=== PATIENT | female | born 1975 | race Caucasian/White ===

== ENCOUNTER 2016-12-16 09:53 | Emergency (ER) | payer SELFPAY ==
[~2016-12-16] VITALS: Ht 167.6 cm; Wt 113.0 kg
[~2016-12-16 09:53] MED LIST: ACET325; PRIM0.224
[2016-12-16 09:58] VITALS: BP_SYST 145; BP_SYST 150; BP_DIAS 110; BP_DIAS 94; PULSE 105; RESP 20; TEMP 98.6; O2SAT 95
[2016-12-16] MEDS ORDERED: ATEN50TA PO (10:14)
[2016-12-16] MEDS ORDERED: ONDANSETRON ODT 4 MG TAB PO ONE (10:15)
[2016-12-16] MEDS ORDERED: ACETAMINOPHEN/CODEINE 300 MG/30 MG TAB PO ONE (10:15)
[2016-12-16] MEDS ORDERED: IBUPROFEN 600 MG TAB PO ONE (10:15)
--- NOTE | 2016-12-16 10:17 | PD ---
HPI Chief Complaint: Injury Time Seen by Provider: 10:08 Travel History International Travel<30 days: No Contact w/Intl Traveler<30days: No Traveled to known affect area: No History of Present Illness HPI 41-year-old female presents for evaluation after mechanical fall. Last night the patient tripped in the middle of the night and fell, landing on the carpet. She injured her left leg in the process. She is having pain in her left knee , left ankle and foot. Pain is an aching pain that is worse with movement, ambulation. She denies any other injuries and she has no other complaints at this time. PFSH Past Medical History Hx Anticoagulant Therapy: No Asthma: Yes Cardiovascular Problems: Yes Chemotherapy: No Cerebrovascular Accident: No Diabetes: No Diminished Hearing: No Respiratory: No Seizures: Yes ?: Not LMP: 12/12/16 : 6 Para: 3 Miscarriage: 2 : 1 Tubal Ligation: Yes Past Surgical History Hysterectomy: No Social History Alcohol Use: Yes (DRINKS WINE 5 X WEEK) Tobacco Use: No (1 1/2 PACKS DAILY) Allergies-Medications (Allergen,Severity, Reaction): Coded Allergies: No Known Allergies (Verified Allergy, Mild, 03/10/06) Reported Meds & Prescriptions Reported Meds & Active Scripts Active Lortab (Hydrocodone-Acetaminophen) 5-325 Mg Tab 1 Tab PO Q6H PRN Reported Atenolol 50 Mg Tab 50 Mg PO DAILY Review of Systems Musculoskeletal: Positive: Limited ROM, Pain, Other (difficulty walking) Skin: Positive Other (denies open wounds) Physical Exam Narrative GENERAL: Well-developed well-nourished female in no acute distress SKIN: Warm and dry. No bruising or soft tissue swelling currently. HEAD: Atraumatic. Normocephalic. CARDIOVASCULAR: Regular rate and rhythm. No murmur appreciated. RESPIRATORY: No accessory muscle use. Clear to auscultation. Breath sounds equal bilaterally. MUSCULOSKELETAL: No obvious deformities. Some tenderness to palpation to the medial left knee, lateral left ankle, dorsal left foot. There is pain with dorsi and plantar flexion of the left ankle, pain with flexion and extension of the left knee. There is no joint effusion. 2+ dorsalis pedis and posterior tibial pulses. Achilles tendon is intact and nontender. Calf is nontender. NEUROLOGICAL: Awake and alert. No obvious cranial nerve deficits. Motor grossly within normal limits. Normal speech. Data Data Last Documented VS Vital Signs Date Time Temp Pulse Resp B/P Pulse Ox O2 Delivery O2 Flow Rate FiO2 12/16/16 09:58 98.6 105 20 145/94 95 Room Air Orders Ankle, Complete ([id number]) (12/16/16 ) Foot, Complete ([id number]) (12/16/16 ) Knee, Complete (4vws) (12/16/16 ) Ice/Cold Pack (12/16/16 10:14) Acetamin-Codeine 300-30 Mg (Tylenol-Code (12/16/16 10:15) Ibuprofen (Motrin) (12/16/16 10:15) Ondansetron Odt (Zofran Odt) (12/16/16 10:15) Splint Or Brace Apply/Monitor (12/16/16 11:32) Crutches (12/16/16 11:32) MDM Medical Decision Making Medical Screen Exam Complete: Yes Emergency Medical Condition: Yes Medical Record Reviewed: Yes Differential Diagnosis Knee sprain, ankle sprain, ligamentous disruption, meniscal disruption, tibial plateau fracture, fibula fracture, avulsion fracture Narrative Course 41-year-old female who tripped and fell last night presents with left knee, left ankle and left foot pain. X-ray imaging is been ordered. The patient will be given pain medication, ice pack. X-ray imaging reveals an oblique distal left fibular fracture. The patient will be placed in a andujar splint and given crutches. A mandatory outpatient referral has been placed for orthopedic follow-up. She is stable for discharge. Diagnosis Primary Impression: Closed left ankle fracture Qualified Code: S82.892A - Closed left ankle fracture, initial encounter Referrals: Orthopedist Additional Instructions: Follow-up with an orthopedist in the next week. Do not remove the splint. Crutches. Lortab as needed. Do not drive or drink alcohol when taking this medication. Return for any emergent medical conditions. Med/Other Pt SpecificInfo: Prescription(s) given, Orthopedic Instructions Scripts Hydrocodone-Acetaminophen (Lortab)5-325 Mg Tab1 Tab PO Q6H PRN (PAIN) #20 TAB Ref 0 Prov:Ninfa Espinosa DO 12/16/16 Disposition: 01 DISCHARGE HOME Condition: Stable Chuck Khalil Dec 16, 2016 10:17
[2016-12-16 11:25] VITALS: RESP 16
[2016-12-16] MEDS ORDERED: HYDR-3533 PO (11:36)
--- NOTE | 2016-12-16 11:40 | RADRPT ---
EXAM DATE/TIME: 12/16/2016 10:37 [facility] COMPARISON: No previous studies available for comparison. INDICATIONS : Left knee pain MEDICAL HISTORY : None. SURGICAL HISTORY : None. ENCOUNTER: Initial ACUITY: 1 day PAIN SCORE: 10/10 LOCATION: Left Knee FINDINGS: 4 views left knee. Bone alignment within normal limits. No evidence of fracture. Mild medial compart ment narrowing. Minimal medial compartment osteophytes. No evidence of joint effusion. CONCLUSION: No evidence of fracture. Minimal osteophyte formation and mild narrowing of the medial compartment. Pancho Chisholm MD on December 16, 2016 at 11:37 Board Certified Radiologist. This report was verified electronically.
--- NOTE | 2016-12-16 11:42 | RADRPT ---
EXAM DATE/TIME: 12/16/2016 10:38 [facility] COMPARISON: No previous studies available for comparison. INDICATIONS : Left ankle pain and swelling lateral side MEDICAL HISTORY : None. SURGICAL HISTORY : None. ENCOUNTER: Initial ACUITY: 1 day PAIN SCORE: 10/10 LOCATION: Left ankle FINDINGS: 3 views left ankle. Oblique fracture of the distal fibular shaft just above the lateral malleolus. 4 mm lateral displacement distal fragment. Small plantar calcaneal spur. CONCLUSION: Fracture distal fibular shaft. Pancho Chisholm MD on December 16, 2016 at 11:38 Board Certified Radiologist. This report was verified electronically.
--- NOTE | 2016-12-16 11:43 | RADRPT ---
EXAM DATE/TIME: 12/16/2016 10:40 [facility] COMPARISON: ANKLE LEFT COMPLETE ([id number]), December 16, 2016, 10:38. INDICATIONS : Left foot pain post fall MEDICAL HISTORY : None. SURGICAL HISTORY : None. ENCOUNTER: Initial ACUITY: 1 day PAIN SCORE: 10/10 LOCATION: Left Foot FINDINGS: 3 views of the left foot. Distal fibular shaft fracture described on ankle series report. No other fr acture identified. CONCLUSION: Distal fibular shaft fracture. No other fracture identified. Pancho Chisholm MD on December 16, 2016 at 11:40 Board Certified Radiologist. This report was verified electronically.
== END 2016-12-16 13:03 | disposition home or self-care (01) ==
LOC: NEPK 09:53
DX: S82.892A Other fracture of left lower leg, initial encounter for closed fracture (principal); J45.909 Unspecified asthma, uncomplicated; F17.210 Nicotine dependence, cigarettes, uncomplicated; W01.0XXA Fall on same level from slipping, tripping and stumbling without subsequent striking against object, initial encounter; Y93.9 Activity, unspecified; Y92.9 Unspecified place or not applicable; Y99.8 Other external cause status
CPT/HCPCS: 73564; 73610; 73630; 99283; E0113

== ENCOUNTER → 2017-01-23 | Outpatient (CLI) | payer SELFPAY ==
[~2017-01-23] MED LIST changes: -ACET325; +ATEN50TA PO; +HYDR-3533 PO; -PRIM0.224
== END ==
LOC: HORT 16:20
PROVIDERS: ATTEND Orthopaedic Surgery Sports Medicine
DX: S82.65XD Nondisplaced fracture of lateral malleolus of left fibula, subsequent encounter for closed fracture with routine healing (principal); X58.XXXD Exposure to other specified factors, subsequent encounter
CPT/HCPCS: L2114

== ENCOUNTER → 2017-02-15 | Outpatient (CLI) | payer MEDICAID | LOC: HORT 10:07 | PROVIDERS: ATTEND Orthopaedic Surgery Sports Medicine | DX: S82.65XD Nondisplaced fracture of lateral malleolus of left fibula, subsequent encounter for closed fracture with routine healing (principal); X58.XXXD Exposure to other specified factors, subsequent encounter | CPT/HCPCS: L1906 ==